=== PATIENT | female | born 1995 | race Caucasian/White ===

== ENCOUNTER 2020-04-09 13:49 | Emergency (ER) | payer MEDICAID, OTHER ==
[~2020-04-09] VITALS: Ht 167.6 cm; Wt 78.3 kg
[2020-04-09] MEDS ORDERED: DIPH,PERTUSS(ACELL),TET VAC/PF 0.5 ML IM-VACC ONE ×2 (14:27→14:30)
[2020-04-09] MEDS ORDERED: LIDOCAINE-MPF 1%, 5ML ONE (14:27)
[2020-04-09] MEDS ORDERED: LIDOCAINE-MPF 1%, 5ML INFIL ONE (14:30)
[2020-04-09 14:44] VITALS: BP 116/66
--- NOTE | 2020-04-09 14:44 | NUR ---
pt in bed no distress.
--- NOTE | 2020-04-09 14:45 | NUR ---
wound clean, suture set up.
--- NOTE | 2020-04-09 15:18 | NUR ---
at bs. sutures done
--- NOTE | 2020-04-09 16:04 | NUR ---
pt dc home, walked out with a steady gait.
--- NOTE | 2020-04-09 16:08 | NUR ---
discuess s&s of infection and to return to the er for suture removal
== END 2020-04-09 16:17 | disposition home or self-care (01) ==
LOC: ED 15:30
DX: S61.211A Laceration without foreign body of left index finger without damage to nail, initial encounter (principal); Z87.891 Personal history of nicotine dependence; W27.5XXA Contact with paper-cutter, initial encounter; Y93.89 Activity, other specified; Y92.098 Other place in other non-institutional residence as the place of occurrence of the external cause; Y99.8 Other external cause status
CPT/HCPCS: 12001; 90471; 90715; 99283

== ENCOUNTER 2020-04-10 14:42 | Emergency (ER) | payer MEDICAID ==
[~2020-04-10] VITALS: Ht 167.6 cm; Wt 79.4 kg
[2020-04-10 14:54] VITALS: BP 110/68
[2020-04-10] MEDS ORDERED: LIDOCAINE-MPF 1%, 5ML ONE (15:10)
[2020-04-10] MEDS ORDERED: NEOSPORIN OINT. PKT 1 PACKET ONE (15:24)
[2020-04-10] MEDS ORDERED: LIDOCAINE-MPF 1%, 5ML INFIL ONE (15:30)
== END 2020-04-10 15:56 | disposition home or self-care (01) ==
LOC: ED 15:41
DX: S61.211A Laceration without foreign body of left index finger without damage to nail, initial encounter (principal); Z87.891 Personal history of nicotine dependence; W27.5XXA Contact with paper-cutter, initial encounter; Y93.89 Activity, other specified; Y92.89 Other specified places as the place of occurrence of the external cause; Y99.8 Other external cause status
CPT/HCPCS: 12041; 99284

== ENCOUNTER 2020-10-04 12:30 | Emergency (ER) | payer MEDICAID ==
[~2020-10-04] VITALS: Ht 170.2 cm; Wt 67.7 kg
[2020-10-04 12:39] VITALS: BP 119/72
--- NOTE | 2020-10-04 13:06 | NUR ---
PT PRESENTS WITH C/O RIGHT UPPER ARM ABSCESS FROM IV DRUG USE X3 DAYS.
[2020-10-04] MEDS ORDERED: LIDOCAINE 1%, 10ML INFIL ONE (13:30)
== END 2020-10-04 14:53 | disposition home or self-care (01) ==
LOC: ED 13:00
DX: L03.113 Cellulitis of right upper limb (principal); L02.413 Cutaneous abscess of right upper limb; R21 Rash and other nonspecific skin eruption
CPT/HCPCS: 10060